=== PATIENT | female | born 1980 ===

== ENCOUNTER 2017-03-16 17:42 | Emergency (ER) | payer OTHER ==
[2017-03-16 17:53] VITALS: RESP 20
[2017-03-16] MEDS ORDERED: Sodium Chloride 0.9% 1,000 ML IV STA (18:34)
[2017-03-16] MEDS ORDERED: Sodium Chloride 0.9% 1,000 ML ONE (18:51)
[2017-03-16 18:57] LABS: BASO % 0.8 % (0.0-2.0); EOS # 0.2 K/uL (0.0-0.7); EOS % 3.2 % (0.0-4.0); HEMATOCRIT 39.7 % (34.0-47.0); LYMPH # 1.9 K/uL (1.0-4.3); LYMPH % 39.4 % (20.0-40.0); MEAN CELL VOLUME 92.8 fL (81.0-99.0); MEAN CORPUSCULAR HEMOGLOBIN 31.4 pg (27.0-31.0); MEAN CORPUSCULAR HGB CONC 33.9 g/dL (33.0-37.0); MEAN PLATELET VOLUME 7.6 fL (7.2-11.7); MONO # 0.4 K/uL (0.0-0.8); MONO % 9.2 % (0.0-10.0); NRBC % 0.2 % (0.0-2.0); RED CELL DISTRIBUTION WIDTH 13.1 % (11.5-14.5); WHITE BLOOD COUNT 4.9 K/uL (4.8-10.8)
[2017-03-16 19:01] LABS: RBC URINE < 1 /hpf (0-3); URINE BACTERIA RARE (<OCC); URINE BILIRUBIN NEGATIVE (NEGATIVE); URINE BLOOD NEGATIVE (NEGATIVE); URINE COLOR Yellow (YELLOW); URINE GLUCOSE (UA) NORMAL (Normal); URINE KETONE NEGATIVE (NEGATIVE); URINE LEUKOCYTE ESTERASE NEG Leu/uL (Negative); URINE PROTEIN NEGATIVE (NEGATIVE); URINE UROBILINOGEN NORMAL mg/dL (0.2-1.0); WBC URINE 1 /hpf (0-5)
[2017-03-16 19:07] LABS: ALB/GLOB RATIO 1.5 (1.0-2.1); ALKALINE PHOSPHATASE 69 U/L (38-126); ALT/SGPT 19 U/L (9-52); AST/SGOT 21 U/L (14-36); BILIRUBIN,TOTAL 0.4 mg/dL (0.2-1.3); BLOOD UREA NITROGEN 10 mg/dL (7-17); CALCIUM 8.9 mg/dl (8.6-10.4); CARBON DIOXIDE 28 mmol/L (22-30); CHLORIDE 99 mmol/L (98-107); GFR AFRICAN-AMERICAN > 60; GLUCOSE,RANDOM 96 mg/dL (65-105); POTASSIUM 4.2 mmol/L (3.6-5.2); SODIUM 132 mmol/L (132-148); TOTAL PROTEIN 6.6 g/dL (6.3-8.3)
--- NOTE | 2017-03-16 19:23 | C.PDOC ---
History Of Present Illness 37 y/o female presents to the ER complaining of cramping abdominal pain which began this morning. Patient states that she had 2 episodes of diarrhea and 2 bowel movements before she passed bright red blood. She denies any rectal pain. Time Seen by Provider: 03/16/17 18:13 Chief Complaint (Nursing): GI Problem History Per: Patient History/Exam Limitations: no limitations Onset/Duration Of Symptoms: Hrs Current Symptoms Are (Timing): Still Present Quality Of Discomfort: Cramping Past Medical History Reviewed: Historical Data, Nursing Documentation, Vital Signs Vital Signs: Last Vital Signs Temp 98.7 F 03/16/17 17:50 Pulse 83 03/16/17 17:50 Resp 20 03/16/17 17:50 BP 98/65 L 03/16/17 17:50 Pulse Ox 99 03/16/17 20:50 - Medical History PMH: No Chronic Diseases Surgical History: No Surg Hx Family History: States: No Known Family Hx Other Family History: grandfather- colon cancer - Social History Hx Alcohol Use: No Hx Substance Use: No - Immunization History Hx Tetanus Toxoid Vaccination: No Hx Influenza Vaccination: No Hx Pneumococcal Vaccination: No Review Of Systems Except As Marked, All Systems Reviewed And Found Negative. Gastrointestinal: Positive for: Abdominal Pain (cramping abdominal pain). Negative for: Rectal Pain Physical Exam - Physical Exam Appears: Non-toxic, No Acute Distress Skin: Normal Color, Warm Head: Atraumatic, Normacephalic Eye(s): bilateral: Normal Inspection Nose: Normal Oral Mucosa: Moist Neck: Supple Chest: Symmetrical Cardiovascular: Rhythm Regular Respiratory: Normal Breath Sounds, No Accessory Muscle Use Gastrointestinal/Abdominal: Soft, No Tenderness Rectal: Blood Streaked Stool (bright red blood), No Tenderness, Other (external exam looks normal) Extremity: Normal ROM Neurological/Psych: Oriented x3, Normal Speech, Normal Cognition ED Course And Treatment - Laboratory Results Result Diagrams: 03/16/17 18:52 03/16/17 18:52 O2 Sat by Pulse Oximetry: 99 (RA) Pulse Ox Interpretation: Normal Progress Note: Patient was found to be by Urine test that was re confirmed by serum beta HCG. Patient was instructed to return to ED in 2 days to repeat beta HCG and pelvic US as patient stating she had vaginal bleeding that finished 3 days ago. Patient still denies any pelvic pain/vaginal bleeding at this time. Patient was explained the reason for follow up (r/o ectopic /r/o demise). Patient verbalized understanding. Medical Decision Making Medical Decision Making: Impression: Cramping Abdominal Pain Plan: --Bloodwork Disposition - Disposition Referrals: Henry Ward MD [Staff Provider] - Marylin Martinez [Staff Provider] - Disposition: HOME/ ROUTINE Disposition Time: 20:47 Condition: STABLE Additional Instructions: Follow up with PMD, GI and OBGYN. Return to ED in 2 days to repeat beta HCG and pelvic US. Return to ED immediately if feel worse. Prescriptions: Vit Calc,Iron,Folic [ Vitamins] 1 each PO DAILY #30 tablet Instructions: (ED), Rectal Bleeding (ED) Forms: [employer] (Georgian) - Clinical Impression Clinical Impression: Rectal bleeding, test positive - PA / AUTO SERVICER / Resident Statement MD/DO has reviewed & agrees with the documentation as recorded. - Scribe Statement The provider has reviewed the documentation as recorded by the Freddy Schwartz Provider Attestation All medical record entries made by the Hilaryibe were at my direction and personally dictated by me. I have reviewed the chart and agree that the record accurately reflects my personal performance of the history, physical exam, medical decision making, and the department course for this patient. I have also personally directed, reviewed, and agree with the discharge instructions and disposition.
[2017-03-16 21:18] VITALS: BP 100/72; PULSE 78; TEMP 97.2; O2SAT 98
== END 2017-03-16 21:16 | disposition home or self-care (01) ==
LOC: C.ER 17:42
DX: K62.5 Hemorrhage of anus and rectum (principal); Z32.01 Encounter for pregnancy test, result positive
CPT/HCPCS: 80053; 81001; 83690; 84702; 84703; 85025; 85610; 85730; 96361; 96374; 99284; C9113; G0328; J7040

== ENCOUNTER 2017-03-18 13:56 | Emergency (ER) | payer OTHER ==
[2017-03-18 14:29] LABS: BASO # 0.1 K/uL (0.0-0.2); BASO % 0.9 % (0.0-2.0); EOS # 0.1 K/uL (0.0-0.7); EOS % 0.9 % (0.0-4.0); HEMATOCRIT 40.4 % (34.0-47.0); LYMPH # 1.4 K/uL (1.0-4.3); LYMPH % 24.2 % (20.0-40.0); MEAN CELL VOLUME 91.8 fL (81.0-99.0); MEAN CORPUSCULAR HEMOGLOBIN 31.4 pg (27.0-31.0); MEAN CORPUSCULAR HGB CONC 34.2 g/dL (33.0-37.0); MEAN PLATELET VOLUME 7.6 fL (7.2-11.7); MONO # 0.5 K/uL (0.0-0.8); MONO % 7.7 % (0.0-10.0); RED CELL DISTRIBUTION WIDTH 12.9 % (11.5-14.5)
[2017-03-18 14:43] LABS: ALB/GLOB RATIO 1.3 (1.0-2.1); ALKALINE PHOSPHATASE 67 U/L (38-126); ALT/SGPT 20 U/L (9-52); AST/SGOT 20 U/L (14-36); BILIRUBIN,TOTAL 0.6 mg/dL (0.2-1.3); BLOOD UREA NITROGEN 10 mg/dL (7-17); CALCIUM 9.2 mg/dl (8.6-10.4); CARBON DIOXIDE 27 mmol/L (22-30); CHLORIDE 100 mmol/L (98-107); GFR AFRICAN-AMERICAN > 60; GLUCOSE,RANDOM 100 mg/dL (65-105); POTASSIUM 3.8 mmol/L (3.6-5.2); SODIUM 134 mmol/L (132-148); TOTAL PROTEIN 7.3 g/dL (6.3-8.3)
--- NOTE | 2017-03-18 15:25 | US ---
HISTORY: right pelvic pain/vaginal bleeding, COMPARISON: None available. TECHNIQUE: Transabdominal and transvaginal pelvic ultrasound was performed FINDINGS: UTERUS: Measures 8.7 x 4.3 x 6.0 Cm. Anteverted, normal in size and appearance. No fibroid or other mass lesion seen. ENDOMETRIUM: Measures 9.2 mm in diameter. The central endometrial echo complex is normal in appearance. CERVIX: No cervical abnormality identified. RIGHT OVARY: Measures 3.3 x 2.1 x 3.2 cm. No solid mass. Normal flow. LEFT OVARY: Measures 2.7 x 2.1 x 3.1 cm. No solid mass. Normal flow. FREE FLUID: No significant free fluid noted. OTHER FINDINGS: None. IMPRESSION: Normal pelvic ultrasound.
--- NOTE | 2017-03-18 15:56 | C.PDOC ---
History Of Present Illness Paulette Stein is a 37 year old female, with no past medical history, who presents to the emergency department for repeat Beta and umbilical ultrasound. Patient was in the ER x2 days ago for abdominal pain, where she was accidentally found to be and with low beta. At that time patient had stated her last menstrual period was x3 days prior to the ER visit. She was told to come back to repeat beta and obtain umbilical ultrasound. Patient states yesterday she had a mild vaginal bleeding with discomfort on right pelvic area. No further medical complaints. PMD: None provided. Chief Complaint (Nursing): Female Genitourinary History Per: Patient History/Exam Limitations: no limitations Onset/Duration Of Symptoms: Days (x2) Current Symptoms Are (Timing): Still Present Pain Scale Rating Of: 0 Associated Symptoms: Other (vaginal bleeding, and discomfort on right pelvic area) Past Medical History Reviewed: Historical Data, Nursing Documentation, Vital Signs Vital Signs: Last Vital Signs Temp 98.4 F 03/18/17 16:03 Pulse 94 H 03/18/17 16:03 Resp 18 03/18/17 16:03 BP 102/68 03/18/17 16:03 Pulse Ox 100 03/18/17 16:03 - Medical History PMH: No Chronic Diseases Surgical History: No Surg Hx Family History: States: Unknown Family Hx - Social History Hx Tobacco Use: No Hx Alcohol Use: No Hx Substance Use: No - Immunization History Hx Tetanus Toxoid Vaccination: No Hx Influenza Vaccination: No Hx Pneumococcal Vaccination: No Review Of Systems Except As Marked, All Systems Reviewed And Found Negative. Genitourinary: Positive for: Vaginal Bleeding (mild), Pelvic Pain (discomfort) Physical Exam - Physical Exam Appears: Non-toxic Skin: Normal Color, Warm, Dry Head: Atraumatic, Normacephalic Eye(s): bilateral: Normal Inspection, PERRL, EOMI Neck: Normal, Normal ROM, Supple Cardiovascular: Rhythm Regular Respiratory: Normal Breath Sounds, No Accessory Muscle Use Gastrointestinal/Abdominal: Tenderness (right mild suprapubic) Extremity: Normal ROM, No Deformity, No Swelling Neurological/Psych: Oriented x3, Normal Speech ED Course And Treatment - Laboratory Results Result Diagrams: 03/18/17 14:25 03/18/17 14:25 Medical Decision Making Medical Decision Making: Initial Impression: vaginal bleeding Initial Plan: --Type and screen --Beta-HCG, Quantitative --CBC w/ differential --Pelvis/transvag US --reevaluation 15:24 Pelvis/Transvag US FINDINGS: UTERUS: Measures 8.7 x 4.3 x 6.0 Cm. Anteverted, normal in size and appearance. No fibroid or other mass lesion seen. ENDOMETRIUM: Measures 9.2 mm in diameter. The central endometrial echo complex is normal in appearance. CERVIX: No cervical abnormality identified. RIGHT OVARY: Measures 3.3 x 2.1 x 3.2 cm. No solid mass. Normal flow. LEFT OVARY: Measures 2.7 x 2.1 x 3.1 cm. No solid mass. Normal flow. FREE FLUID: No significant free fluid noted. OTHER FINDINGS: None. IMPRESSION: Normal pelvic ultrasound. --Blood work repeated. Beta went up from 793 to 1041. Patient was instructed to return to repeat beta and ultrasound again. --Patient was explained the reason for returning to rule out ectopic Disposition - Disposition Disposition: HOME/ ROUTINE Disposition Time: 15:55 Condition: STABLE Additional Instructions: Follow up with PMD within 1-2 days. Return to ED if feel worse. Return to ED in 2 days to repeat beta HCG and Plevic US. Instructions: First Trimester Vaginal Bleed (ED) Forms: [employer] (Vincentian) - Clinical Impression Clinical Impression: Vaginal bleeding affecting early - Scribe Statement Dayton Colon All medical record entries made by the Scribe were at my direction and personally dictated by me. I have reviewed the chart and agree that the record accurately reflects my personal performance of the history, physical exam, medical decision making, and the department course for this patient. I have also personally directed, reviewed, and agree with the discharge instructions and disposition.
[2017-03-18 16:04] VITALS: BP 102/68; PULSE 94; RESP 18; TEMP 98.4; O2SAT 100
== END 2017-03-18 16:04 | disposition home or self-care (01) ==
LOC: C.ER 13:56
DX: O46.91 Antepartum hemorrhage, unspecified, first trimester (principal); Z3A.00 Weeks of gestation of pregnancy not specified

== ENCOUNTER 2017-03-21 11:14 | Emergency (ER) | payer OTHER ==
[2017-03-21 11:29] VITALS: BMI 25.7
[2017-03-21 11:32] VITALS: RESP 18; TEMP 98
--- NOTE | 2017-03-21 12:24 | C.PDOC ---
History Of Present Illness 37 year old female, , LMP 03/08/17 presents to ED for evaluation of vaginal bleeding that started 3 days ago. Pt states that she was evaluated in [facility] few days ago and was instructed to return for repeat beta levels. Pt states that it initially started as dark brown spotting but is now bright red blood. Notes that bleeding has increased, reports using 1 pad today. Denies dizziness, lightheadedness, headache, symptoms, chest pain, sob, n/v/d, fever , or chills. Time Seen by Provider: 03/21/17 11:54 Chief Complaint (Nursing): Medical Clearance History Per: Patient History/Exam Limitations: no limitations Onset/Duration Of Symptoms: Days Current Symptoms Are (Timing): Still Present Recent travel outside of the [place]: No Additional History Per: Patient Past Medical History Reviewed: Historical Data, Nursing Documentation, Vital Signs Vital Signs: Last Vital Signs Temp 98 F 03/21/17 17:36 Pulse 80 03/21/17 17:36 Resp 18 03/21/17 17:36 BP 107/71 03/21/17 17:36 Pulse Ox 96 03/21/17 17:36 Family History: States: Unknown Family Hx - Social History Hx Tobacco Use: No Hx Alcohol Use: No Hx Substance Use: No - Immunization History Hx Tetanus Toxoid Vaccination: No Hx Influenza Vaccination: No Hx Pneumococcal Vaccination: No Review Of Systems Except As Marked, All Systems Reviewed And Found Negative. Constitutional: Negative for: Fever, Chills Cardiovascular: Negative for: Chest Pain, Palpitations Respiratory: Negative for: Shortness of Breath Gastrointestinal: Positive for: Abdominal Pain. Negative for: Nausea, Vomiting , Diarrhea Genitourinary: Positive for: Vaginal Bleeding. Negative for: Dysuria, Frequency , Hematuria, Vaginal Discharge Musculoskeletal: Negative for: Back Pain Neurological: Negative for: Headache, Dizziness Physical Exam - Physical Exam Appears: Non-toxic, No Acute Distress Skin: Normal Color, Warm, Dry Head: Atraumatic, Normacephalic Eye(s): bilateral: Normal Inspection, EOMI Nose: Normal Oral Mucosa: Moist Neck: Normal ROM, Supple Chest: Symmetrical Cardiovascular: Rhythm Regular Respiratory: Normal Breath Sounds, No Rales, No Rhonchi, No Wheezing Gastrointestinal/Abdominal: Soft, Tenderness (suprapubic), No Guarding, No Rebound Back: No CVA Tenderness Extremity: Normal ROM Neurological/Psych: Oriented x3, Normal Speech ED Course And Treatment - Laboratory Results Result Diagrams: 03/21/17 13:02 03/21/17 13:02 O2 Sat by Pulse Oximetry: 98 (RA) Pulse Ox Interpretation: Normal - CT Scan/US Transvaginal US Other Rad Studies (CT/US): Read By Radiologist, Radiology Report Reviewed CT/US Interpretation: Accession No. : [id number]. Patient Name / ID : KEILY NEAL / [id number]. Exam Date : 03/21/2017 14:18:42 ( Approved ). Study Comment : Sex / Age : F / 37Y. Creator : Dwayne Sifuentes MD. Dictator : Dwayne Sifuentes MD. Trash Collector : Weigher And Mixer : Dwayne Sifuentes MD. Approver2 : Report Date : 03/21/2017 15:28:32. My Comment : . HISTORY: bleeding pain ; last menstrual period is reported 03/08/2017. COMPARISON: Prior transvaginal and transabdominal pelvic ultrasound 2016. TECHNIQUE: Transvaginal pelvic ultrasonography was performed in longitudinal and transverse projections including color Doppler technique were appropriate. FINDINGS: UTERUS: Measures 9.0 x 4.4 x 5.3 cm. Uterus is enlarged but without focal myometrial lesion appreciable. The uterus is anteverted. ENDOMETRIUM: Measures 8.7 mm in diameter. No is identified within the endometrial cavity with the endometrium appearing unremarkable grossly. CERVIX: Trace fluid is seen in the adductor cervical canal with the cervix otherwise unremarkable appearing. RIGHT OVARY: Measures 3.1 x 1.8 x 2.5 cm. A few follicles identified within the right ovary which are under 1 cm size. Adjacent to the right ovary however, there is a circular hyperechoic focus measuring 1.4 x 1.4 x 1.4 meter with a small cystic core measure 3.2 mm greatest dimension. No pole yolk sac is recognized within this fluid collection. The appearance however is one of decidual reaction surrounding a possible gestational sac in the findings suspicious for ectopic gestation within the right adnexa. Further, a simple cyst identified medial to this hyperechoic structure measuring 2.0 x 1.2 x 1.7 cm with no associated septation or nodular changes. This may represent a parovarian cyst or even a peritoneal cyst. LEFT OVARY: Measures 3.6 x 1.6 x 2.3 cm. No solid mass. Normal flow. FREE FLUID: No significant free fluid noted. OTHER FINDINGS: None. IMPRESSION: No intrauterine gestation is identified transvaginally with a 1.4 cm structure seen in the right adnexa suspicious for ectopic gestation. Serum beta-hCG gene dialysis indicates increase overall only a 2 day period. Obstetric consultation recommended. No pelvic fluid collections appreciate with the left and compartment unremarkable appearing. Trace fluid is seen the endocervical canal. Findings discussed with DEMETRIS Baig 03/21/2017, 3:10 p.m.. Progress Note: Blood work, UA, transvaginal ultrasound ordered and reviewed. On re-eval, patient is resting comfortably, denies any chest pain, shortness of breath, or lightheadedness. Case discussed with Dr. Forrest, OB medical practitioners, who evaluted pt at bedside and instructed Methotrexate IM ( 50 mg/m^[address] Forrest ) in ER and to return to ER on day 4 and day 7. Pt understands risks and verbalized understanding. Disposition - Disposition Disposition: HOME/ ROUTINE Disposition Time: 15:45 Condition: STABLE Additional Instructions: Return to ER on 03/24/17 and on 03/27/16 for repeat hormone levels. Instructions: Ectopic (ED) Forms: [employer] (Bolivian) - Clinical Impression Clinical Impression: Ectopic - PA / CARE INFORMATION ASSOCIATE / Resident Statement MD/DO has reviewed & agrees with the documentation as recorded. - Scribe Statement The provider has reviewed the documentation as recorded by the Hilaryibe Ritchie Carvajal All medical record entries made by the Scribe were at my direction and personally dictated by me. I have reviewed the chart and agree that the record accurately reflects my personal performance of the history, physical exam, medical decision making, and the department course for this patient. I have also personally directed, reviewed, and agree with the discharge instructions and disposition.
[2017-03-21 13:08] LABS: BASO % 0.3 % (0.0-2.0); EOS # 0.1 K/uL (0.0-0.7); HEMATOCRIT 41.9 % (34.0-47.0); LYMPH # 0.9 K/uL (1.0-4.3); LYMPH % 19.2 % (20.0-40.0); MEAN CELL VOLUME 92.7 fL (81.0-99.0); MEAN CORPUSCULAR HEMOGLOBIN 31.3 pg (27.0-31.0); MEAN CORPUSCULAR HGB CONC 33.8 g/dL (33.0-37.0); MEAN PLATELET VOLUME 7.9 fL (7.2-11.7); MONO # 0.4 K/uL (0.0-0.8); MONO % 8.9 % (0.0-10.0); RED CELL DISTRIBUTION WIDTH 13.1 % (11.5-14.5); WHITE BLOOD COUNT 4.8 K/uL (4.8-10.8)
[2017-03-21 13:24] LABS: ALB/GLOB RATIO 1.1 (1.0-2.1); ALKALINE PHOSPHATASE 68 U/L (38-126); ALT/SGPT 19 U/L (9-52); AST/SGOT 24 U/L (14-36); BILIRUBIN,TOTAL 0.5 mg/dL (0.2-1.3); BLOOD UREA NITROGEN 11 mg/dL (7-17); CALCIUM 8.8 mg/dl (8.6-10.4); CARBON DIOXIDE 27 mmol/L (22-30); CHLORIDE 99 mmol/L (98-107); GFR AFRICAN-AMERICAN > 60; GLUCOSE,RANDOM 101 mg/dL (65-105); POTASSIUM 3.3 mmol/L (3.6-5.2); SODIUM 133 mmol/L (132-148); TOTAL PROTEIN 7.6 g/dL (6.3-8.3)
[2017-03-21 13:31] LABS: RBC URINE 5 /hpf (0-3); URINE BILIRUBIN NEGATIVE (NEGATIVE); URINE BLOOD 2+ (NEGATIVE); URINE COLOR Yellow (YELLOW); URINE GLUCOSE (UA) NORMAL (Normal); URINE KETONE NEGATIVE (NEGATIVE); URINE LEUKOCYTE ESTERASE NEG Leu/uL (Negative); URINE PROTEIN NEGATIVE (NEGATIVE); URINE UROBILINOGEN NORMAL mg/dL (0.2-1.0); WBC URINE < 1 /hpf (0-5)
--- NOTE | 2017-03-21 15:30 | US ---
HISTORY: bleeding pain ; last menstrual period is reported 03/08/2017. COMPARISON: Prior transvaginal and transabdominal pelvic ultrasound 03/18/2017. TECHNIQUE: Transvaginal pelvic ultrasonography was performed in longitudinal and transverse projections including color Doppler technique were appropriate. FINDINGS: UTERUS: Measures 9.0 x 4.4 x 5.3 cm. Uterus is enlarged but without focal myometrial lesion appreciable. The uterus is anteverted. ENDOMETRIUM: Measures 8.7 mm in diameter. No is identified within the endometrial cavity with the endometrium appearing unremarkable grossly. CERVIX: Trace fluid is seen in the adductor cervical canal with the cervix otherwise unremarkable appearing. RIGHT OVARY: Measures 3.1 x 1.8 x 2.5 cm. A few follicles identified within the right ovary which are under 1 cm size. Adjacent to the right ovary however, there is a circular hyperechoic focus measuring 1.4 x 1.4 x 1.4 meter with a small cystic core measure 3.2 mm greatest dimension. No pole yolk sac is recognized within this fluid collection. The appearance however is one of decidual reaction surrounding a possible gestational sac in the findings suspicious for ectopic gestation within the right adnexa. Further, a simple cyst identified medial to this hyperechoic structure measuring 2.0 x 1.2 x 1.7 cm with no associated septation or nodular changes. This may represent a parovarian cyst or even a peritoneal cyst. LEFT OVARY: Measures 3.6 x 1.6 x 2.3 cm. No solid mass. Normal flow. FREE FLUID: No significant free fluid noted. OTHER FINDINGS: None. IMPRESSION: No intrauterine gestation is identified transvaginally with a 1.4 cm structure seen in the right adnexa suspicious for ectopic gestation. Serum beta-hCG gene dialysis indicates increase overall only a 2 day period. Obstetric consultation recommended. No pelvic fluid collections appreciate with the left and compartment unremarkable appearing. Trace fluid is seen the endocervical canal. Findings discussed with DEMETRIS Baig 03/21/2017, 3:10 p.m..
[2017-03-21] MEDS ORDERED: Methotrexate 50 mg/2 ml Inj IM ONE ×3 (16:13→16:30)
--- NOTE | 2017-03-21 16:43 | CP.PCM.CON ---
<Ximena Allred - Last Filed: 03/21/17 16:47> History of Present Illness - History of Present Illness History of Present Illness: [employer] Consult Note for Dr. Forrest's Service CC: vaginal bleeding x 5 days HPI: 37F presents to the ED with vaginal bleeding x 5 days. Patient stated she had a sexual encounter and took Plan B afterwards. She had her normal menses in January and LMP 03/08/17 - lasting 5 days. She was seen in the ED 03/16/17 for rectal bleeding which resolved. During this visit she was notified that she was , and told to return in 2 days for repeat beta. Beta trend: 03/16, 03/18, 03/21 respectively: 793, 1041, 1698. Patient reports initial bleeding was 5 days ago, brownish in color. She started having bright red blood yesterday and today. Admitted to a heaviness, right lower abdomen, denied any pain, or passage of clots. Denied fever, chills, fatigue, dizziness, chest pain, SOB, abdominal pain, n/v/d/c, or urinary symptoms. PMHx: Endometriosis PSHx: D&Cs, (2010) OBHx: Spontaneous abortions x 3, Miscarriage 1998 @ 4 weeks (D&C), 2010 7lbs 2oz 2/2 oligohydramnios GYNHx: Menarche - 14, Q28 days, lasting 5-6 days. Treated for Chlamydia 10 years ago, + HPV. Meds: Denied All: NKDA SHx: Denied tobacco, alcohol or illicit drug use. 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 FHx: Mother - 63 - no medical history, Father - 63 - CVA x 2, [place], HTN. Maternal Grandfather - Colon Cancer Past Patient History - Infectious Disease Hx of Infectious Diseases: None - Past Social History Smoking Status: Never Smoked - GENITOURINARY/GYNECOLOGICAL Hx Genitourinary Disorders: Yes Other/Comment: endometriosis - PSYCHIATRIC Hx Substance Use: No - SURGICAL HISTORY Hx Surgeries: Yes Hx Section: Yes Other/Comment: explore lap - ANESTHESIA Hx Anesthesia: No Meds Allergies/Adverse Reactions: Allergies Allergy/AdvReac Type Severity Reaction Status Date / Time No Known Allergies Allergy Verified 03/21/17 11:28 Physical Exam - Constitutional Appears: No Acute Distress - Head Exam Head Exam: NORMAL INSPECTION, NORMOCEPHALIC - Eye Exam Eye Exam: EOMI, Normal appearance, PERRL Pupil Exam: NORMAL ACCOMODATION - ENT Exam ENT Exam: Mucous Membranes Moist - Neck Exam Neck exam: Positive for: Normal Inspection - Respiratory Exam Respiratory Exam: Clear to Auscultation Bilateral, NORMAL BREATHING PATTERN. absent: Wheezes - Cardiovascular Exam Cardiovascular Exam: REGULAR RHYTHM - GI/Abdominal Exam GI & Abdominal Exam: Normal Bowel Sounds, Soft. absent: Distended, Tenderness - Extremities Exam Extremities exam: Positive for: normal inspection, pedal pulses present. Negative for: pedal edema, tenderness - Back Exam Back exam: NORMAL INSPECTION - Neurological Exam Neurological exam: Alert, Oriented x3 - Psychiatric Exam Psychiatric exam: Anxious, Normal Affect, Normal Mood - Skin Skin Exam: Dry, Intact, Normal Color, Warm Results - Vital Signs Recent Vital Signs: Last Vital Signs Temp 98 F 03/21/17 11:29 Pulse 94 H 03/21/17 11:29 Resp 18 03/21/17 11:29 BP 111/74 03/21/17 11:29 Pulse Ox 98 03/21/17 16:16 - Labs Result Diagrams: 03/21/17 13:02 03/21/17 13:02 Labs: Laboratory Results - last 24 hr 03/21/17 03/21/17 03/21/17 13:02 13:02 13:02 WBC 4.8 RBC 4.53 Hgb 14.2 Hct 41.9 MCV 92.7 MCH 31.3 H MCHC 33.8 RDW 13.1 Plt Count 288 MPV 7.9 Neut % (Auto) 69.6 Lymph % (Auto) 19.2 L Churchill % (Auto) 8.9 Eos % (Auto) 2.0 Baso % (Auto) 0.3 Neut # 3.3 Lymph # 0.9 L Churchill # 0.4 Eos # 0.1 Baso # 0.0 Sodium 133 Potassium 3.3 L Chloride 99 Carbon Dioxide 27 Anion Gap 10 BUN 11 Creatinine 0.5 L Est GFR ( Amer) > 60 Est GFR (Non-Af Amer) > 60 Random Glucose 101 Calcium 8.8 Total Bilirubin 0.5 AST 24 ALT 19 Alkaline Phosphatase 68 Total Protein 7.6 Albumin 4.0 Globulin 3.6 Albumin/Globulin Ratio 1.1 Beta HCG, Quant 1698.20 Urine Color Yellow Urine Clarity Clear Urine pH 6.0 Ur Specific Loy[place] 1.021 Urine Protein Negative Urine Glucose (UA) Normal Urine Ketones Negative Urine Blood 2+ H Urine Nitrate Negative Urine Bilirubin Negative Urine Urobilinogen Normal Ur Leukocyte Esterase Neg Urine WBC (Auto) < 1 Urine RBC (Auto) 5 H Ur Squamous Epith Cells 2 Urine HCG, Qual Positive Blood Type Antibody Screen 03/21/17 13:02 WBC RBC Hgb Hct MCV MCH MCHC RDW Plt Count MPV Neut % (Auto) Lymph % (Auto) Churchill % (Auto) Eos % (Auto) Baso % (Auto) Neut # Lymph # Churchill # Eos # Baso # Sodium Potassium Chloride Carbon Dioxide Anion Gap BUN Creatinine Est GFR ( Amer) Est GFR (Non-Af Amer) Random Glucose Calcium Total Bilirubin AST ALT Alkaline Phosphatase Total Protein Albumin Globulin Albumin/Globulin Ratio Beta HCG, Quant Urine Color Urine Clarity Urine pH Ur Specific L[place] Urine Protein Urine Glucose (UA) Urine Ketones Urine Blood Urine Nitrate Urine Bilirubin Urine Urobilinogen Ur Leukocyte Esterase Urine WBC (Auto) Urine RBC (Auto) Ur Squamous Epith Cells Urine HCG, Qual Blood Type O POSITIVE Antibody Screen Negative Assessment & Plan - Assessment and Plan (Free Text) Assessment: 37F presents to the ED with vaginal bleeding x 5 days. Found to have an ectopic on transvaginal ultrasound. Plan: Ectopic Patient is clinically stable Beta trend: 03/16, 03/18, 03/21 respectively: 793, 1041, 1698 Transvaginal US 03/21/17: No intrauterine gestation is identified transvaginally with a 1.4 cm structure seen in the right adnexa suspicious for ectopic gestation. Serum beta-hCG gene dialysis indicates increase overall only a 2 day period. Obstetric consultation recommended. No pelvic fluid collections appreciate with the left and compartment unremarkable appearing. Trace fluid is seen the endocervical canal. Methotrexate 44mg IM given once today (Day 1- 03/21/17). Patient is to follow up on Day 4 03/24/17 (where a second dose of Methotrexate may be given if beta levels are not down trending) and Day 7 03/27/2017 to trend beta levels. She will continue to follow up once a week every week until her beta level is zero. Patient was advised even after the 2nd dose of Methotrexate-if needed, there may be a need for surgical intervention. All risks were described to the patient, and all questions answered. Patient stated she understood the plan. DW Dr. Tere Forrest, Ximena Allred DO, PGY-1 <Prudence Forrest - Last Filed: 03/21/17 18:40> Results - Vital Signs Recent Vital Signs: Last Vital Signs Temp 98 F 03/21/17 17:36 Pulse 80 03/21/17 17:36 Resp 18 03/21/17 17:36 BP 107/71 03/21/17 17:36 Pulse Ox 96 03/21/17 17:36 - Labs Result Diagrams: 03/21/17 13:02 03/21/17 13:02 Labs: Laboratory Results - last 24 hr 03/21/17 03/21/17 03/21/17 13:02 13:02 13:02 WBC 4.8 RBC 4.53 Hgb 14.2 Hct 41.9 MCV 92.7 MCH 31.3 H MCHC 33.8 RDW 13.1 Plt Count 288 MPV 7.9 Neut % (Auto) 69.6 Lymph % (Auto) 19.2 L Churchill % (Auto) 8.9 Eos % (Auto) 2.0 Baso % (Auto) 0.3 Neut # 3.3 Lymph # 0.9 L Churchill # 0.4 Eos # 0.1 Baso # 0.0 Sodium 133 Potassium 3.3 L Chloride 99 Carbon Dioxide 27 Anion Gap 10 BUN 11 Creatinine 0.5 L Est GFR ( Amer) > 60 Est GFR (Non-Af Amer) > 60 Random Glucose 101 Calcium 8.8 Total Bilirubin 0.5 AST 24 ALT 19 Alkaline Phosphatase 68 Total Protein 7.6 Albumin 4.0 Globulin 3.6 Albumin/Globulin Ratio 1.1 Beta HCG, Quant 1698.20 Urine Color Yellow Urine Clarity Clear Urine pH 6.0 Ur Specific Loyall 1.021 Urine Protein Negative Urine Glucose (UA) Normal Urine Ketones Negative Urine Blood 2+ H Urine Nitrate Negative Urine Bilirubin Negative Urine Urobilinogen Normal Ur Leukocyte Esterase Neg Urine WBC (Auto) < 1 Urine RBC (Auto) 5 H Ur Squamous Epith Cells 2 Urine HCG, Qual Positive Blood Type Antibody Screen 03/21/17 13:02 WBC RBC Hgb Hct MCV MCH MCHC RDW Plt Count MPV Neut % (Auto) Lymph % (Auto) Churchill % (Auto) Eos % (Auto) Baso % (Auto) Neut # Lymph # Churchill # Eos # Baso # Sodium Potassium Chloride Carbon Dioxide Anion Gap BUN Creatinine Est GFR ( Amer) Est GFR (Non-Af Amer) Random Glucose Calcium Total Bilirubin AST ALT Alkaline Phosphatase Total Protein Albumin Globulin Albumin/Globulin Ratio Beta HCG, Quant Urine Color Urine Clarity Urine pH Ur Specific Loyall Urine Protein Urine Glucose (UA) Urine Ketones Urine Blood Urine Nitrate Urine Bilirubin Urine Urobilinogen Ur Leukocyte Esterase Urine WBC (Auto) Urine RBC (Auto) Ur Squamous Epith Cells Urine HCG, Qual Blood Type O POSITIVE Antibody Screen Negative Attending/Attestation - Attestation I have personally seen and examined this patient.: Yes I have fully participated in the care of the patient.: Yes I have reviewed all pertinent clinical information: Yes Notes (Text): 03/21/17 18:36 On vaginal exam, minimal vaginal bleeding noted. No cervical motion tenderness; no adnexal tenderness or masses appreciated. 03/21/17 18:38 I agree with the above as documented. R/B/C were discussed at length with patient. She expressed an understanding and agrees to follow instructions. Patient is clinically stable.
[2017-03-21 17:37] VITALS: BP 107/71; PULSE 80
[2017-03-24 12:59] VITALS: O2SAT 98
== END 2017-03-21 17:38 | disposition home or self-care (01) ==
LOC: C.ER 11:14
DX: O00.90 Unspecified ectopic pregnancy without intrauterine pregnancy (principal)
CPT/HCPCS: 76830; 80053; 81001; 84702; 84703; 85025; 86850; 86900; 96372; 99284; J9250

== ENCOUNTER 2017-03-24 14:21 | Emergency (ER) | payer OTHER ==
[2017-03-24 14:21] VITALS: BMI 25.7
[2017-03-24 14:30] VITALS: TEMP 98
--- NOTE | 2017-03-24 14:43 | C.PDOC ---
History Of Present Illness 37 year old female , LMP 03/08/17,presents to ED for repeat beta levels. Patient states that she was evaluated in [facility] few days ago and was instructed to return for repeat beta levels after being treated for ectopic . Patient reports initial bleeding was 7 days ago, brownish in color. She is lightly bleeding and denies any pain. Denies fever, chills, fatigue, dizziness, chest pain, SOB, abdominal pain, or urinary symptoms. Time Seen by Provider: 03/24/17 14:32 Chief Complaint (Nursing): Medical Clearance History Per: Patient History/Exam Limitations: no limitations Onset/Duration Of Symptoms: Days Past Medical History Reviewed: Historical Data, Nursing Documentation, Vital Signs Vital Signs: Last Vital Signs Temp 98 F 03/24/17 14:29 Pulse 86 03/24/17 17:32 Resp 18 03/24/17 17:32 BP 111/75 03/24/17 17:32 Pulse Ox 100 03/24/17 17:32 - Medical History PMH: No Chronic Diseases Surgical History: Family History: States: Unknown Family Hx - Social History Hx Tobacco Use: No Hx Alcohol Use: No Hx Substance Use: No - Immunization History Hx Tetanus Toxoid Vaccination: No Hx Influenza Vaccination: No Hx Pneumococcal Vaccination: No Review Of Systems Except As Marked, All Systems Reviewed And Found Negative. Physical Exam - Physical Exam Appears: Well, Non-toxic, No Acute Distress Skin: Warm, Dry, No Rash Head: Atraumatic, Normacephalic Eye(s): bilateral: Normal Inspection, EOMI Neck: Normal ROM Chest: Symmetrical Cardiovascular: Rhythm Regular, No Murmur Respiratory: Normal Breath Sounds, No Wheezing Extremity: Bilateral: Atraumatic, Normal Color And Temperature, Normal ROM Neurological/Psych: Oriented x3, Normal Speech ED Course And Treatment O2 Sat by Pulse Oximetry: 98 Medical Decision Making Medical Decision Making: Patient seen in ED on 03/21/17 for ectopic and seen by Dr Forrest. Patient was treated with Methotrexate 44mg IM and instructed to return today for repeat BHCG. Beta trend: 03/16, 03/18, 03/21 respectively: 793, 1041, 1698 BHCG today 03/24/[address] Forrest's chart. On 03/24/17 second dose of Methotrexate may be given if beta levels are not down trending. Patient now to be given IM dose. Patient to return Day 7 03/27/2017 to trend beta levels. She will continue to follow up once a week every week until her beta level is zero. Disposition Counseled Patient/Family Regarding: Diagnosis, Need For Followup - Disposition Disposition: HOME/ ROUTINE Disposition Time: 17:30 Condition: STABLE Additional Instructions: You must return on 03/27/2017 to trend beta levels. You will need to follow up once a week every week until beta level is zero. Today your beta level was 2173.50 Instructions: Methotrexate (By injection), Ectopic (ED) Forms: [employer] ([place]) - POA Present On Arrival: None - Clinical Impression Clinical Impression: Ectopic , Prior methotrexate therapy
[2017-03-24] MEDS ORDERED: Methotrexate 50 mg/2 ml Inj IM ONE ×2 (16:10→16:45)
[2017-03-24 17:33] VITALS: BP 111/75; PULSE 86; RESP 18
[2017-03-24 20:00] VITALS: O2SAT 98
== END 2017-03-24 17:33 | disposition home or self-care (01) ==
LOC: C.ER 14:21
DX: O00.90 Unspecified ectopic pregnancy without intrauterine pregnancy (principal)
CPT/HCPCS: 36415; 84702; 96372; 99283; J9250

== ENCOUNTER 2017-03-27 15:34 | Emergency (ER) | payer OTHER ==
[2017-03-27 15:35] VITALS: BMI 25.7
[2017-03-27] MEDS ORDERED: Methotrexate 50 mg/2 ml Inj IM ONE ×3 (18:16→18:30)
--- NOTE | 2017-03-27 18:18 | C.PDOC ---
History Of Present Illness 37-year-old female, returns to the emergency department for repeat Beta quant. Patient is s/p Methotrexate 03/21 and 03/24. Patients beta on 03/24 was 2173. Patient had bleeding after that administration, which resolved, and has no current pain. She is currently complaining of nausea. Denies abdominal pain or current bleeding. No other complaints at this time. Time Seen by Provider: 03/27/17 16:13 Chief Complaint (Nursing): GI Problem History Per: Patient History/Exam Limitations: no limitations Onset/Duration Of Symptoms: Days Current Symptoms Are (Timing): Still Present Past Medical History Reviewed: Historical Data, Nursing Documentation, Vital Signs Vital Signs: Last Vital Signs Temp 98.4 F 03/27/17 15:52 Pulse 98 H 03/27/17 15:52 Resp 18 03/27/17 15:52 BP 106/69 03/27/17 15:52 Pulse Ox 99 03/27/17 18:28 Surgical History: Family History: States: No Known Family Hx - Social History Hx Tobacco Use: No Hx Alcohol Use: No Hx Substance Use: No - Immunization History Hx Tetanus Toxoid Vaccination: No Hx Influenza Vaccination: No Hx Pneumococcal Vaccination: No Review Of Systems Except As Marked, All Systems Reviewed And Found Negative. Constitutional: Negative for: Fever, Chills Cardiovascular: Negative for: Chest Pain, Palpitations Respiratory: Negative for: Shortness of Breath Gastrointestinal: Negative for: Nausea, Vomiting Genitourinary: Positive for: Vaginal Bleeding (now resolved) Musculoskeletal: Negative for: Back Pain Neurological: Negative for: Weakness, Numbness Physical Exam - Physical Exam Appears: Non-toxic, No Acute Distress Skin: Warm, Dry, No Rash Head: Atraumatic, Normacephalic Eye(s): bilateral: Normal Inspection, PERRL Nose: Normal Oral Mucosa: Moist Lips: Normal Appearing Neck: Normal ROM Cardiovascular: Rhythm Regular, No Murmur Respiratory: Normal Breath Sounds, No Accessory Muscle Use Gastrointestinal/Abdominal: Soft, No Tenderness, No Guarding, No Rebound Extremity: Normal ROM Neurological/Psych: Oriented x3, Normal Speech ED Course And Treatment O2 Sat by Pulse Oximetry: 99 (on RA) Pulse Ox Interpretation: Normal Interpretation Of Abnormal: Discussed with Dr Forrest, states to administer another dose of Methotrexate, and discharge, f/u in ER in seven days for repeat count. Disposition Counseled Patient/Family Regarding: Studies Performed, Diagnosis, Need For Followup - Disposition Referrals: [facility] at [facility] [Outside] Disposition Time: 18:20 Additional Instructions: RETURN TO EMERGENCY ROOM IN 7 DAYS (04/03/17) FOR REPEAT BETA QUANT RETURN SOONER IF YOU HAVE ANY CONCERNING SYMPTOMS Instructions: Ectopic (ED) Forms: [employer] (Lithuanian) Print Language: FIJIAN - Clinical Impression Clinical Impression: Ectopic - Scribe Statement The provider has reviewed the documentation as recorded by the Scribe (Mikey Angelo) All medical record entries made by the Scribe were at my direction and personally dictated by me. I have reviewed the chart and agree that the record accurately reflects my personal performance of the history, physical exam, medical decision making, and the department course for this patient. I have also personally directed, reviewed, and agree with the discharge instructions and disposition.
[2017-03-27 19:14] VITALS: BP 104/70; PULSE 74; RESP 20; TEMP 98.7; O2SAT 98
--- NOTE | 2017-03-28 05:06 | CP.PCM.CON ---
History of Present Illness - History of Present Illness History of Present Illness: Asked to see patient - ectopic with elevated HCG; S/P methotrexate x 2 doses Patient received in HW#5, lying on stretcher in NAD. Patient is teary; concerned that HCg raised instead of decreasing. Patient denies any abdominal pain; bleeding stopped after second dose of methotrexate 03/24/17. (+) nausea; denies vomiting. Review of Systems - Reproductive: Female Reproductive:Female: As Per HPI Past Patient History - Infectious Disease Hx of Infectious Diseases: None - Past Social History Smoking Status: Never Smoked - GENITOURINARY/GYNECOLOGICAL Hx Genitourinary Disorders: Yes Other/Comment: endometriosis - PSYCHIATRIC Hx Substance Use: No - SURGICAL HISTORY Hx Surgeries: Yes Hx Section: Yes (X1) Other/Comment: explore lap - ANESTHESIA Hx Anesthesia: Yes Hx Anesthesia Reactions: No Meds Allergies/Adverse Reactions: Allergies Allergy/AdvReac Type Severity Reaction Status Date / Time No Known Allergies Allergy Verified 03/24/17 14:28 Physical Exam - Constitutional Appears: Well, No Acute Distress - Head Exam Head Exam: NORMAL INSPECTION, NORMOCEPHALIC - Eye Exam Eye Exam: Normal appearance - ENT Exam ENT Exam: Mucous Membranes Moist - Neck Exam Neck exam: Positive for: Full Rom - Respiratory Exam Respiratory Exam: NORMAL BREATHING PATTERN - Cardiovascular Exam Cardiovascular Exam: REGULAR RHYTHM - GI/Abdominal Exam GI & Abdominal Exam: Soft (Non tender. Non distended) - Extremities Exam Extremities exam: Positive for: normal inspection - Neurological Exam Neurological exam: Alert, Oriented x3 - Psychiatric Exam Psychiatric exam: Normal Affect, Normal Mood - Skin Skin Exam: Dry, Intact, Normal Color, Warm Results - Vital Signs Recent Vital Signs: Last Vital Signs Temp 98.7 F 03/27/17 19:10 Pulse 74 03/27/17 19:10 Resp 20 03/27/17 19:10 BP 104/70 03/27/17 19:10 Pulse Ox 98 03/27/17 19:10 - Labs Labs: Laboratory Results - last 24 hr 03/27/17 16:39 Beta HCG, Quant 2464.30 Assessment & Plan - Assessment and Plan (Free Text) Assessment: Quant HCG trend reviewed by me personally. The trend in quant HCG levels was also discussed with the patient: options discussed - third dose of methotrexate or surgery. Patient does not desire surgery at this time. Agrees to receiving a third dose of methotrexate. R/B/C reviewed. Patient is clinically stable. Plan: Give methotrexate 87.5 mg IM x 1 now Return to E.D. in 7 days for repeat HCG levels Return to E.D. prior to 7 days if severe abdominal pain, shoulder pain, loss of consciousness - Date & Time Date: 03/27/17 Time: 18:35
== END 2017-03-27 19:10 | disposition home or self-care (01) ==
LOC: C.ER 15:34
DX: O00.90 Unspecified ectopic pregnancy without intrauterine pregnancy (principal)
CPT/HCPCS: 84702; 96372; 99284; J9250

== ENCOUNTER 2017-04-03 16:15 | Emergency (ER) | payer OTHER ==
[2017-04-03 16:15] VITALS: BMI 25.7
[2017-04-03 16:27] VITALS: BP 106/73; PULSE 91; RESP 19; TEMP 97.3; O2SAT 99
--- NOTE | 2017-04-03 17:58 | C.PDOC ---
History Of Present Illness 37 yr old female presents to the ER for repeat BETA. Patient was found to have am ectoptic and has been treated with methotrexate 3x. Currently patient denies fever, chills, chest pain, SOB, nausea, vomiting, abdominal pain , dysuria, vaginal discharge, vaginal bleeding, weakness or numbness Time Seen by Provider: 04/03/17 16:33 Chief Complaint (Nursing): Medical Clearance History Per: Patient History/Exam Limitations: no limitations Onset/Duration Of Symptoms: Days Past Medical History Reviewed: Historical Data, Nursing Documentation, Vital Signs Vital Signs: Last Vital Signs Temp 97.3 F L 04/03/17 16:24 Pulse 91 H 04/03/17 16:24 Resp 19 04/03/17 16:24 BP 106/73 04/03/17 16:24 Pulse Ox 99 04/03/17 23:21 Surgical History: Family History: States: No Known Family Hx - Social History Hx Tobacco Use: No Hx Alcohol Use: No Hx Substance Use: No - Immunization History Hx Tetanus Toxoid Vaccination: No Hx Influenza Vaccination: No Hx Pneumococcal Vaccination: No Review Of Systems Except As Marked, All Systems Reviewed And Found Negative. Constitutional: Negative for: Fever, Chills Cardiovascular: Negative for: Chest Pain Respiratory: Negative for: Shortness of Breath Gastrointestinal: Negative for: Nausea, Vomiting, Abdominal Pain Genitourinary: Negative for: Dysuria, Vaginal Discharge, Vaginal Bleeding Neurological: Negative for: Weakness, Numbness Physical Exam - Physical Exam Appears: Non-toxic, No Acute Distress Skin: Warm, Dry, No Rash Head: Atraumatic, Normacephalic Eye(s): bilateral: Normal Inspection Oral Mucosa: Moist Neck: Normal ROM Cardiovascular: Rhythm Regular, No Friction Rub, No Murmur Respiratory: Normal Breath Sounds, No Rales, No Rhonchi, No Stridor, No Wheezing Gastrointestinal/Abdominal: Normal Exam, Soft, No Tenderness, No Guarding, No Rebound Back: Normal Inspection, No CVA Tenderness Extremity: Normal ROM, No Swelling Neurological/Psych: Oriented x3, Normal Speech, Normal Motor Gait: Steady ED Course And Treatment O2 Sat by Pulse Oximetry: 99 (RA) Pulse Ox Interpretation: Normal Medical Decision Making Medical Decision Making: PLAN: * BETA NOTE: Old records were reviewed. Patient was seen in ER multiple times for ectopic . Patient has been treated with Methotrexate by our OB Dr. Barros and was discharged home. BETA today is 1044. Case was discussed with On-Call OB Dr. Barros who states patient is safe for discharge home and patient has to have BETA checked every week until B ETA becomes 0. Disposition - Disposition Referrals: [facility] at [facility] [Outside] Disposition: HOME/ ROUTINE Disposition Time: 17:58 Condition: GOOD Additional Instructions: Follow up with the OBGYN/clinic within 1 week without fail. YOU HAVE TO HAVE REPEAT BETA TEST UNTIL IT IS 0 (ZERO). RETURN IF WORSENED. Instructions: Ectopic (ED) Forms: [employer] (Palauan) - Clinical Impression Clinical Impression: Ectopic - PA / EDITING INTERN / Resident Statement MD/DO has reviewed & agrees with the documentation as recorded. - Scribe Statement The provider has reviewed the documentation as recorded by the Scribe Mer Sosa All medical record entries made by the Scribe were at my direction and personally dictated by me. I have reviewed the chart and agree that the record accurately reflects my personal performance of the history, physical exam, medical decision making, and the department course for this patient. I have also personally directed, reviewed, and agree with the discharge instructions and disposition.
== END 2017-04-03 18:07 | disposition home or self-care (01) ==
LOC: C.ER 16:15
DX: O00.90 Unspecified ectopic pregnancy without intrauterine pregnancy (principal)